=== PATIENT | female | born 1965 | race Caucasian/White ===

== ENCOUNTER 2024-09-07 18:01 | Emergency (ER) | payer MEDICAID, SELFPAY ==
[~2024-09-07] VITALS: Ht 160 cm; Wt 65.7 kg
[2024-09-07 18:08] VITALS: TEMP 97.6
[2024-09-07 18:37] LABS: VENOUS BASE EXCESS -4.5 (-2.0-2.0); VENOUS HCO3 20.1 MMOL/L (23.0-27.0); VENOUS O2 SATURATION 95.8 % (60.0-80.0); VENOUS PARTIAL PRESSURE CO2 34.7 mmHg (38.0-50.0); VENOUS STANDARD HCO3 20.7 MMOL/L; VENOUS TOTAL CO2 21.1 MMOL/L (24.0-28.0)
[2024-09-07 18:41] LABS: BASO % 0.2 % (0.0-1.0); EOS # 0.1 10^3/uL (0.0-0.5); EOS % 1.4 % (0.0-3.0); HEMATOCRIT 27.7 % (36.0-47.0); HEMOGLOBIN 8.6 g/dl (12.0-15.5); LYMPH # 1.4 10^3/uL (1.5-5.0); LYMPH % 15.9 % (24.0-44.0); MEAN CORPUSCULAR HEMOGLOBIN 27.3 pg (27.0-33.0); MEAN CORPUSCULAR VOLUME 87.9 fl (80.0-96.0); MONO # 0.8 10^3/uL (0.0-0.8); MONO % 8.9 % (2.0-8.0); NEUTROPHILS # 6.5 10^3/uL (1.5-8.5); NEUTROPHILS % 73.3 % (36.0-66.0); PLATELET COUNT, AUTOMATED 279 10^3/uL (150-450); RED BLOOD COUNT 3.15 10^6/uL (4.00-5.40); WHITE BLOOD COUNT 8.9 10^3/uL (4.0-10.0)
[2024-09-07 19:15] LABS: CALCIUM LEVEL 7.8 MG/DL (8.5-10.1); CREATININE FOR GFR 3.21 MG/DL (0.55-1.30); GLOMERULAR FILTRATION RATE 16.2 (>51); POTASSIUM SERUM 5.6 MMOL/L (3.5-5.1)
[2024-09-07 21:15] VITALS: BP 143/58
[2024-09-07 21:45] VITALS: O2SAT 98
== END 2024-09-07 21:52 | disposition home or self-care (01) ==
LOC: EDBD 18:01 → M ED 18:01
DX: R56.9 Unspecified convulsions (principal); N18.4 Chronic kidney disease, stage 4 (severe); E11.9 Type 2 diabetes mellitus without complications; Z86.73 Personal history of transient ischemic attack (TIA), and cerebral infarction without residual deficits; Z88.6 Allergy status to analgesic agent; Z91.040 Latex allergy status

== ENCOUNTER 2024-09-11 17:00 | Inpatient (IN) | payer OTHER, SELFPAY ==
[~2024-09-11] VITALS: Ht 160 cm; Wt 65.0 kg
[2024-09-11] MEDS: NS (Normal Saline) 0.9% 1,000 ML IV ONE (17:20)
[2024-09-11 17:53] LABS: VENOUS BASE EXCESS -3.5 (-2.0-2.0); VENOUS HCO3 22.2 MMOL/L (23.0-27.0); VENOUS O2 SATURATION 83.4 % (60.0-80.0); VENOUS PARTIAL PRESSURE CO2 42.6 mmHg (38.0-50.0); VENOUS PARTIAL PRESSURE O2 47.2 mmHg (30.0-50.0); VENOUS PH 7.334 UNITS (7.330-7.430); VENOUS STANDARD HCO3 21.3 MMOL/L; VENOUS TOTAL CO2 23.5 MMOL/L (24.0-28.0)
[2024-09-11 17:55] LABS: BASO % 0.5 % (0.0-1.0); EOS # 0.2 10^3/uL (0.0-0.5); HEMATOCRIT 27.2 % (36.0-47.0); HEMOGLOBIN 8.5 g/dl (12.0-15.5); LYMPH # 1.2 10^3/uL (1.5-5.0); LYMPH % 14.7 % (24.0-44.0); MEAN CORPUSCULAR HEMOGLOBIN 27.2 pg (27.0-33.0); MEAN CORPUSCULAR HGB CONC 31.3 g/dl (32.0-36.5); MEAN CORPUSCULAR VOLUME 86.9 fl (80.0-96.0); MONO # 0.8 10^3/uL (0.0-0.8); MONO % 9.6 % (2.0-8.0); PLATELET COUNT, AUTOMATED 284 10^3/uL (150-450); RED BLOOD COUNT 3.13 10^6/uL (4.00-5.40); WHITE BLOOD COUNT 8.2 10^3/uL (4.0-10.0)
[2024-09-11 18:26] LABS: OSMOLALITY SERUM 321 MOSM/KG (275-295)
[2024-09-11 18:29] LABS: ETHYL ALCOHOL (ETHANOL) < 0.003 % (0.000-0.010); LIPASE 19 U/L (12-53)
[2024-09-11 18:31] LABS: ALBUMIN 2.7 G/DL (3.2-5.2); ALKALINE PHOSPHATASE 130 U/L (35-104); ALT/SGPT 16 U/L (7.0-40); AST/SGOT 13 U/L (<34); BILIRUBIN,DIRECT 0.3 MG/DL (<0.4); BILIRUBIN,TOTAL 0.7 MG/DL (0.3-1.2); BLOOD UREA NITROGEN 55 MG/DL (9-23); CALCIUM LEVEL 8.4 MG/DL (8.5-10.1); CARBON DIOXIDE LEVEL 23 MMOL/L (20-31); CHLORIDE LEVEL 107 MMOL/L (98-107); CREATININE FOR GFR 3.13 MG/DL (0.55-1.30); GLOMERULAR FILTRATION RATE 16.7 (>51); GLUCOSE, FASTING 271 MG/DL (60-100); POTASSIUM SERUM 4.9 MMOL/L (3.5-5.1); SODIUM LEVEL 140 MMOL/L (136-145); TOTAL PROTEIN 6.3 G/DL (5.7-8.2)
[2024-09-11] MEDS ORDERED: LISI20TA33 PO (19:03)
[2024-09-11] MEDS ORDERED: BASA100I INJ (19:03)
[2024-09-11] MEDS ORDERED: INSU100V3 INJ (19:03)
[2024-09-11] MEDS ORDERED: ROSU10TA61 PO (19:03)
[2024-09-11] MEDS ORDERED: GABA300T2 PO (19:03)
[2024-09-11] MEDS ORDERED: HOME MED LIST COMPLETE! XX SCH (19:05)
[2024-09-11] MEDS: NS (Normal Saline) 0.9% 1,000 ML IV SCH ×2 (19:28→21:59)
[2024-09-11] MEDS: ceFAZolin SOD 1 GM in DEXTROSE 5% (D5W) ADV/MINI-BAG 50 ML IV ONE (19:28)
[2024-09-11] MEDS: LABETALOL 100MG/20ML VIAL IV STA (19:31)
[2024-09-11] MEDS ORDERED: GLUCOSE 4 GM CHEW PO PRN (20:15)
[2024-09-11] MEDS ORDERED: MAALOX 30 ML SUSP *UDC PO PRN (20:15)
[2024-09-11] MEDS ORDERED: ACETAMINOPHEN 325 MG TAB PO PRN (20:15)
[2024-09-11] MEDS ORDERED: DEXTROSE 50% 50ML SYRINGE IV PRN (20:15)
[2024-09-11] MEDS ORDERED: MOM 30ML SUSPENSION UDC PO PRN (20:15)
[2024-09-11] MEDS ORDERED: GLUCAGON INJ 1MG VIAL SC PRN (20:15)
[2024-09-11] MEDS: DOCUSATE SODIUM 100MG CAPSULE PO SCH (21:00)
[2024-09-11] MEDS: INSULIN LISPRO (NovoLOG) PER UNIT SC SCH (21:55)
[2024-09-11 21:56] LABS: C REACTIVE PROTEIN QUANTITATIV 2.53 MG/DL (<1.0)
[2024-09-11 22:08] LABS: PROCALCITONIN 0.17 ng/ml
[2024-09-11] MEDS: DOXYCYCLINE HYCLATE 100 MG in DEXTROSE 5% (D5W) MINI-BAG PLU 100 ML IV SCH (22:43)
[2024-09-11] MEDS: HEPARIN SOD (PORCINE) 5000UNITS/ML 1ML VIAL/SYRINGE SC SCH (22:44)
[2024-09-12] MEDS: MAG SULF 1GM/100ML (MAG RUN) 1 GM in IV 1 EA IV SCH (02:22)
[2024-09-12 06:10] LABS: HEMOGLOBIN 7.8 g/dl (12.0-15.5); MEAN CORPUSCULAR HEMOGLOBIN 27.1 pg (27.0-33.0); MEAN CORPUSCULAR HGB CONC 31.2 g/dl (32.0-36.5); MEAN CORPUSCULAR VOLUME 86.8 fl (80.0-96.0); PLATELET COUNT, AUTOMATED 268 10^3/uL (150-450); RED BLOOD COUNT 2.88 10^6/uL (4.00-5.40); WHITE BLOOD COUNT 10.1 10^3/uL (4.0-10.0)
[2024-09-12 06:37] LABS: ACETONE/KETONE 0.41 MMOL/L (0.02-0.27)
[2024-09-12 06:41] LABS: ALBUMIN 2.3 G/DL (3.2-5.2); BILIRUBIN,TOTAL 0.5 MG/DL (0.3-1.2); CALCIUM LEVEL 8.2 MG/DL (8.5-10.1); CREATININE FOR GFR 3.02 MG/DL (0.55-1.30); GLOMERULAR FILTRATION RATE 17.4 (>51); MAGNESIUM LEVEL 2.2 MG/DL (1.8-2.4); POTASSIUM SERUM 4.9 MMOL/L (3.5-5.1); TOTAL PROTEIN 5.6 G/DL (5.7-8.2)
[2024-09-12 08:39] VITALS: BP 144/68
[2024-09-12] MEDS: ROSUVASTATIN 10 MG TAB (CRESTOR) PO SCH (08:39)
[2024-09-12] MEDS: INSULIN LISPRO (NovoLOG) PER UNIT SC SCH (08:39)
[2024-09-12] MEDS: GABAPENTIN 100 MG CAP PO SCH (08:39)
[2024-09-12] MEDS: DOXYCYCLINE HYCLATE 100MG TABLET PO SCH (08:39)
[2024-09-12] MEDS: amLODIPine 5 MG TAB PO SCH (08:39)
[2024-09-12 09:30] VITALS: O2SAT 96
[2024-09-12] MEDS: LanTUS (INSULIN GLARGINE INJ) 1 UNITS/0.01 ML SC ONE ×2 (10:06→10:28)
[2024-09-12] MEDS ORDERED: DOXY100T PO (10:12)
[2024-09-12 11:15] VITALS: BP 160/79; TEMP 97.6
[2024-09-12] MEDS ORDERED: LanTUS (INSULIN GLARGINE INJ) 1 UNITS/0.01 ML SC SCH (21:00)
== END 2024-09-12 11:23 | disposition home or self-care (01) | DRG 383 ==
LOC: M ED 17:00 → M ED INP 20:15
PROVIDERS: ADMIT Family Medicine; ATTEND Student in an Organized Health Care Education/Training Program
DX: L03.311 Cellulitis of abdominal wall (principal); N18.4 Chronic kidney disease, stage 4 (severe); E10.22 Type 1 diabetes mellitus with diabetic chronic kidney disease; E10.65 Type 1 diabetes mellitus with hyperglycemia; F31.9 Bipolar disorder, unspecified; I12.9 Hypertensive chronic kidney disease with stage 1 through stage 4 chronic kidney disease, or unspecified chronic kidney disease; J44.9 Chronic obstructive pulmonary disease, unspecified; J45.909 Unspecified asthma, uncomplicated; Z86.73 Personal history of transient ischemic attack (TIA), and cerebral infarction without residual deficits; Z91.199 Patient's noncompliance with other medical treatment and regimen due to unspecified reason; Z91.040 Latex allergy status; Z79.899 Other long term (current) drug therapy; Z79.4 Long term (current) use of insulin

== ENCOUNTER → 2024-09-11 | Outpatient (REF) | payer OTHER, SELFPAY ==
[~2024-09-11] MED LIST: BASA100I INJ; DOXY100T PO; GABA300T2 PO; INSU100V3 INJ; LISI20TA33 PO; ROSU10TA61 PO
[2024-09-11 13:16] LABS: CREATININE, URINE 27.3 MG/DL
[2024-09-11 13:31] LABS: MAU/CREAT RATIO 2776.5 MCG/MG (0.0-30.0)
[2024-09-11 16:24] LABS: BASO % 0.4 % (0.0-1.0); EOS # 0.2 10^3/uL (0.0-0.5); EOS % 1.9 % (0.0-3.0); HEMATOCRIT 27.8 % (36.0-47.0); HEMOGLOBIN 8.4 g/dl (12.0-15.5); LYMPH # 1.1 10^3/uL (1.5-5.0); LYMPH % 12.6 % (24.0-44.0); MEAN CORPUSCULAR HEMOGLOBIN 26.8 pg (27.0-33.0); MEAN CORPUSCULAR HGB CONC 30.2 g/dl (32.0-36.5); MEAN CORPUSCULAR VOLUME 88.5 fl (80.0-96.0); MONO # 0.8 10^3/uL (0.0-0.8); NEUTROPHILS # 6.2 10^3/uL (1.5-8.5); NEUTROPHILS % 74.6 % (36.0-66.0); PLATELET COUNT, AUTOMATED 296 10^3/uL (150-450); RED BLOOD COUNT 3.14 10^6/uL (4.00-5.40); WHITE BLOOD COUNT 8.3 10^3/uL (4.0-10.0)
[2024-09-11 16:34] LABS: ALBUMIN 2.6 G/DL (3.2-5.2); BILIRUBIN,TOTAL 0.6 MG/DL (0.3-1.2); CALCIUM LEVEL 8.2 MG/DL (8.5-10.1); CHOLESTEROL RISK RATIO 1.95 (<5); CREATININE FOR GFR 3.2 MG/DL (0.55-1.30); GLOMERULAR FILTRATION RATE 16.3 (>51); HDL CHOLESTEROL 62.4 MG/DL (>40); LDL CHOLESTEROL 43.8 MG/DL (<100); NON-HDL-C 59.6 MG/DL; POTASSIUM SERUM 5.4 MMOL/L (3.5-5.1); TOTAL PROTEIN 6.2 G/DL (5.7-8.2)
== END ==
LOC: M LAB REF 12:09
PROVIDERS: ATTEND Student in an Organized Health Care Education/Training Program
DX: I12.9 Hypertensive chronic kidney disease with stage 1 through stage 4 chronic kidney disease, or unspecified chronic kidney disease (principal); N18.4 Chronic kidney disease, stage 4 (severe); L03.90 Cellulitis, unspecified; M54.50 Low back pain, unspecified